=== PATIENT | female | born 2000 | race Caucasian/White ===

== ENCOUNTER 2023-04-18 15:56 | Outpatient (CLI) | payer OTHER ==
[~2023-04-18] VITALS: Ht 160 cm; Wt 96.8 kg
[2023-04-18 16:14] VITALS: BP 129/60
[2023-04-18] MEDS ORDERED: PRENTAB9 PO (16:18)
[2023-04-18 17:03] LABS: APPEARANCE, URINE HAZY (CLEAR); BACTERIA, URINE AUTO NEGATIVE (NEGATIVE); BILIRUBIN, URINE AUTO NEGATIVE (NEGATIVE); BLOOD, URINE BLOOD NEGATIVE (NEGATIVE); COLOR, URINE YELLOW (YELLOW); GLUCOSE, URINE (UA) AUTO NEGATIVE (NEGATIVE); KETONE, URINE AUTO NEGATIVE (NEGATIVE); LEUKOCYTE ESTERASE, URINE AUTO NEGATIVE (NEGATIVE); NITRITE, URINE AUTO NEGATIVE (NEGATIVE); PROTEIN, URINE AUTO NEGATIVE (NEGATIVE); RBC, URINE AUTO 1 /HPF (0-3); SPECIFIC GRAVITY URINE AUTO 1.009 (1.002-1.035); SQUAMOUS EPITHELIAL CELL UR AU 2 /HPF (0-6); UROBILINOGEN, URINE AUTO 0.2 mg/dL (0.0-2.0); WBC, URINE AUTO 3 /HPF (0-3)
== END 2023-04-18 17:08 | disposition home or self-care (01) ==
LOC: M LDO 15:56
PROVIDERS: ATTEND Obstetrics & Gynecology
DX: O36.8120 Decreased fetal movements, second trimester, not applicable or unspecified (principal); Z3A.26 26 weeks gestation of pregnancy; O26.892 Other specified pregnancy related conditions, second trimester; R25.2 Cramp and spasm; O99.212 Obesity complicating pregnancy, second trimester; E66.9 Obesity, unspecified
CPT/HCPCS: 59025; 76815; 81001; 87086; G0463

== ENCOUNTER 2023-05-07 11:12 | Outpatient (CLI) | payer OTHER ==
[~2023-05-07] VITALS: Ht 160 cm; Wt 97.4 kg
[~2023-05-07 11:12] MED LIST: PRENTAB9 PO
[2023-05-07 11:43] VITALS: BP 134/83
[2023-05-07] MEDS ORDERED: HOME MED LIST COMPLETE! XX SCH (11:45)
== END 2023-05-07 13:53 | disposition home or self-care (01) ==
LOC: M LDO 11:12
PROVIDERS: ATTEND Advanced Practice Midwife
DX: O36.8130 Decreased fetal movements, third trimester, not applicable or unspecified (principal); Z3A.28 28 weeks gestation of pregnancy
CPT/HCPCS: 59025; 76815; 76819; 76820; G0463

== ENCOUNTER 2023-07-21 15:27 | Inpatient (IN) | payer OTHER ==
[2023-07-21] VITALS (10 sets, daily range): BP systolic 121–144; BP diastolic 65–87
[~2023-07-21] VITALS: Ht 160 cm; Wt 100.0 kg
[2023-07-21] MEDS ORDERED: TRANEXAMIC ACID INJection 1,000 MG in NS 100 ML IV PRN (15:35)
[2023-07-21] MEDS ORDERED: OXYTOCIN DRIP 30 UNITS in IV 1 EA IV PRN ×6 (15:35)
[2023-07-21] MEDS ORDERED: LIDOCAINE 1% MDV 20ML VIAL INFIL PRN (15:35)
[2023-07-21] MEDS ORDERED: OXYTOCIN INJ 10UNITS/ML 1ML VIAL IM PRN (15:35)
[2023-07-21] MEDS ORDERED: CARBOPROST TROMETHAMINE 250 MCG/ML AMP IM PRN (15:35)
[2023-07-21] MEDS ORDERED: HOME MED LIST COMPLETE! XX SCH (16:00)
[2023-07-21 16:33] LABS: HEMATOCRIT 34.2 % (36.0-47.0); HEMOGLOBIN 11.3 g/dl (12.0-15.5); MEAN CORPUSCULAR HEMOGLOBIN 29.6 pg (27.0-33.0); MEAN CORPUSCULAR VOLUME 89.5 fl (80.0-96.0); PLATELET COUNT, AUTOMATED 247 10^3/uL (150-450); RED BLOOD COUNT 3.82 10^6/uL (4.00-5.40); WHITE BLOOD COUNT 10.6 10^3/uL (4.0-10.0)
[2023-07-21] MEDS ORDERED: miSOPROStol 50MCG 1/2 TABLET PO SCH (17:00)
[2023-07-21] MEDS ORDERED: NALBUPHINE HCL 10 MG/ML 1ML AMP IV PRN (21:40)
[2023-07-21] MEDS ORDERED: PROMETHAZINE 25MG/ML 1ML VIAL IV ONE (21:40)
[2023-07-22] VITALS (30 sets, daily range): BP systolic 105–145; BP diastolic 54–102; O2SAT 95
[2023-07-22] MEDS ORDERED: OXYTOCIN DRIP 30 UNITS in IV 1 EA IV SCH ×2 (00:10→22:00)
[2023-07-22] MEDS: LR 1,000 ML IV SCH ×4 (01:01→19:40)
[2023-07-22] MEDS ORDERED: ONDANSETRON 4MG 2ML VIAL IV PRN ×2 (06:30→22:00)
[2023-07-22] MEDS ORDERED: diphenhydrAMINE 50MG/ML VIAL IV PRN (06:30)
[2023-07-22] MEDS ORDERED: NALOXONE INJ 0.4MG/1ML VIAL IV PRN (06:30)
[2023-07-22] MEDS ORDERED: EPIDURAL/PCA KEYS XX PRN (06:30)
[2023-07-22] MEDS ORDERED: ePHEDrine SULFATE 25 MG/5 ML(5MG/ML) SYRINGE IVP PRN (06:30)
[2023-07-22] MEDS ORDERED: LR 500 ML IV PRN (06:30)
[2023-07-22] MEDS ORDERED: fentaNYL 100 MCG/2 ML INJECTION As Ordered ONE (06:38)
[2023-07-22] MEDS: FENTANYL/ROPIVACAINE/NACL BAG 100 ML EPIDURAL SCH ×2 (07:03→16:09)
[2023-07-22 21:38] LABS: CORD GAS ABE V -5.3; CORD GAS HCO3 A 19.8 MMOL/L; CORD GAS HCO3 V 20.6 MMOL/L; CORD GAS O2 SAT A 66.2 %; CORD GAS O2 SAT V 70.5 %; CORD GAS PCO2 A 48.7 mmHg; CORD GAS PCO2 V 41.1 mmHg; CORD GAS PH A 7.227 UNITS; CORD GAS PH V 7.317 UNITS; CORD GAS PO2 A 31.8 mmHg; CORD GAS PO2 V 31.3 mmHg; CORD GAS SBC A 17.4 MMOL/L; CORD GAS SBC V 19.5 MMOL/L; CORD GAS TCO2 A 21.3 MMOL/L; CORD GAS TCO2 V 21.8 MMOL/L
[2023-07-22] MEDS ORDERED: LR 1,000 ML IV SCH (22:00)
[2023-07-22] MEDS ORDERED: METHYLERGONOVINE MALEATE 0.2MG/ML 1ML VIAL IM PRN (22:00)
[2023-07-22] MEDS ORDERED: METOCLOPRAMIDE INJ 10MG/2ML VIAL IV PRN (22:00)
[2023-07-22] MEDS ORDERED: RHOGAM 300MCG (1500IU) INJ IM SCH (22:00)
[2023-07-22] MEDS ORDERED: DOCUSATE SODIUM 100MG CAPSULE PO PRN (22:00)
[2023-07-22] MEDS ORDERED: DIBUCAINE 1% OINTMENT 30GM TOP PRN (22:00)
[2023-07-22] MEDS: ACETAMINOPHEN 500 MG TAB PO SCH ×4 (22:19→23:29)
[2023-07-22] MEDS: IBUPROFEN 800 MG TAB PO SCH (22:20)
[2023-07-23 06:00] VITALS: BP 126/78; O2SAT 97
[2023-07-23] MEDS: ACETAMINOPHEN 500 MG TAB PO SCH ×3 (06:30→18:30)
[2023-07-23] MEDS: IBUPROFEN 800 MG TAB PO SCH ×3 (06:31→22:00)
[2023-07-23 06:34] LABS: MEAN CORPUSCULAR HEMOGLOBIN 30.5 pg (27.0-33.0); MEAN CORPUSCULAR HGB CONC 33.5 g/dl (32.0-36.5); MEAN CORPUSCULAR VOLUME 91.2 fl (80.0-96.0); PLATELET COUNT, AUTOMATED 171 10^3/uL (150-450); RED BLOOD COUNT 2.85 10^6/uL (4.00-5.40); WHITE BLOOD COUNT 18.2 10^3/uL (4.0-10.0)
[2023-07-23 06:56] LABS: HEMOGLOBIN 8.7 g/dl (12.0-15.5)
[2023-07-23] MEDS ORDERED: PRENATAL VITAMINS CHEWABLE TABLET PO SCH (09:00)
[2023-07-23] MEDS: PRENATAL VITAMINS CHEWABLE TABLET PO SCH (09:30)
[2023-07-23 10:37] VITALS: BP 108/60; O2SAT 97
[2023-07-23] MEDS: FERROUS SULFATE 325MG TAB PO SCH ×2 (14:33→21:00)
[2023-07-23 18:00] VITALS: BP 121/68; O2SAT 97
[2023-07-24] MEDS: ACETAMINOPHEN 500 MG TAB PO SCH ×2 (00:30→06:30)
[2023-07-24 06:00] VITALS: BP 129/74; O2SAT 98
[2023-07-24] MEDS: IBUPROFEN 800 MG TAB PO SCH ×2 (06:00→08:04)
[2023-07-24] MEDS: FERROUS SULFATE 325MG TAB PO SCH (08:02)
[2023-07-24] MEDS: PRENATAL VITAMINS CHEWABLE TABLET PO SCH (08:03)
[2023-07-24] MEDS ORDERED: MEASLES,MUMPS,RUBELLA VACCINE INJ (MMR-II) SC.IMMUN ONE (09:00)
== END 2023-07-24 10:10 | disposition home or self-care (01) | DRG 807 ==
LOC: M LDI 15:27 → M OBS 07-22 23:50
PROVIDERS: ADMIT Obstetrics & Gynecology; ATTEND Obstetrics & Gynecology
PROC: 3E033VJ Introduction of Other Hormone into Peripheral Vein, Percutaneous Approach (ICD-10-PCS; 2023-07-21)
PROC: 10E0XZZ Delivery of Products of Conception, External Approach (ICD-10-PCS; principal; 2023-07-22)
PROC: 0HQ9XZZ Repair Perineum Skin, External Approach (ICD-10-PCS; 2023-07-22)
DX: O13.4 Gestational [pregnancy-induced] hypertension without significant proteinuria, complicating childbirth (principal); Z37.0 Single live birth; Z3A.39 39 weeks gestation of pregnancy; O70.0 First degree perineal laceration during delivery; O99.02 Anemia complicating childbirth; D64.9 Anemia, unspecified

== ENCOUNTER → 2023-07-21 | Outpatient (CLI) | payer OTHER ==
[2023-07-21 10:09] LABS: HEMATOCRIT 34.6 % (36.0-47.0); HEMOGLOBIN 11.5 g/dl (12.0-15.5); MEAN CORPUSCULAR HEMOGLOBIN 29.8 pg (27.0-33.0); MEAN CORPUSCULAR HGB CONC 33.2 g/dl (32.0-36.5); MEAN CORPUSCULAR VOLUME 89.6 fl (80.0-96.0); PLATELET COUNT, AUTOMATED 221 10^3/uL (150-450); RED BLOOD COUNT 3.86 10^6/uL (4.00-5.40); WHITE BLOOD COUNT 12.1 10^3/uL (4.0-10.0)
[2023-07-21 10:14] LABS: APPEARANCE, URINE HAZY (CLEAR); BACTERIA, URINE AUTO NEGATIVE (NEGATIVE); BILIRUBIN, URINE AUTO NEGATIVE (NEGATIVE); BLOOD, URINE BLOOD NEGATIVE (NEGATIVE); COLOR, URINE AMBER (YELLOW); GLUCOSE, URINE (UA) AUTO NEGATIVE (NEGATIVE); KETONE, URINE AUTO NEGATIVE (NEGATIVE); LEUKOCYTE ESTERASE, URINE AUTO NEGATIVE (NEGATIVE); MUCUS, URINE SMALL (NEGATIVE); NITRITE, URINE AUTO NEGATIVE (NEGATIVE); PROTEIN, URINE AUTO 2+ mg/dL (NEGATIVE); RBC, URINE AUTO 4 /HPF (0-3); SPECIFIC GRAVITY URINE AUTO 1.019 (1.002-1.035); SQUAMOUS EPITHELIAL CELL UR AU 6 /HPF (0-6); WBC, URINE AUTO 4 /HPF (0-3)
[2023-07-21 10:36] LABS: TOTAL PROTEIN,RANDOM URINE 75.8 MG/DL (0.0-14.0)
[2023-07-21 10:41] LABS: CREATININE,RANDOM URINE 225.2 MG/DL
[2023-07-21 10:41] LABS: ALBUMIN 2.3 G/DL (3.2-5.2); ALKALINE PHOSPHATASE 250 U/L (46-116); ALT/SGPT 62 U/L (7.0-40); AST/SGOT 55 U/L (<34); BILIRUBIN,TOTAL 0.4 MG/DL (0.3-1.2); BLOOD UREA NITROGEN 12 MG/DL (9-23); CALCIUM LEVEL 9.4 MG/DL (8.5-10.1); CARBON DIOXIDE LEVEL 21 MMOL/L (20-31); CHLORIDE LEVEL 106 MMOL/L (98-107); CREATININE FOR GFR 0.69 MG/DL (0.55-1.30); GLOMERULAR FILTRATION RATE > 60.0 (>60); GLUCOSE, FASTING 117 MG/DL (60-100); SODIUM LEVEL 138 MMOL/L (136-145); TOTAL PROTEIN 6.1 G/DL (5.7-8.2)
== END ==
LOC: M LAB 09:34
PROVIDERS: ATTEND Obstetrics & Gynecology
DX: O13.3 Gestational [pregnancy-induced] hypertension without significant proteinuria, third trimester (principal)

== ENCOUNTER 2023-07-28 18:36 | Emergency (ER) | payer OTHER ==
[~2023-07-28] VITALS: Ht 160 cm; Wt 91.5 kg
[2023-07-28] MEDS ORDERED: ISOVUE-370 76% 100ML VIAL As Ordered ONE (18:47)
[2023-07-28 19:23] LABS: BASO # 0.1 10^3/uL (0.0-0.2); BASO % 0.4 % (0.0-1.0); EOS # 0.3 10^3/uL (0.0-0.5); EOS % 2.5 % (0.0-3.0); HEMATOCRIT 33.6 % (36.0-47.0); HEMOGLOBIN 10.9 g/dl (12.0-15.5); LYMPH # 2.6 10^3/uL (1.5-5.0); LYMPH % 23.2 % (24.0-44.0); MEAN CORPUSCULAR HEMOGLOBIN 29.6 pg (27.0-33.0); MEAN CORPUSCULAR HGB CONC 32.4 g/dl (32.0-36.5); MEAN CORPUSCULAR VOLUME 91.3 fl (80.0-96.0); MONO # 0.7 10^3/uL (0.0-0.8); MONO % 5.9 % (2.0-8.0); NEUTROPHILS # 7.6 10^3/uL (1.5-8.5); NEUTROPHILS % 67.2 % (36.0-66.0); PLATELET COUNT, AUTOMATED 480 10^3/uL (150-450); RED BLOOD COUNT 3.68 10^6/uL (4.00-5.40); WHITE BLOOD COUNT 11.3 10^3/uL (4.0-10.0)
[2023-07-28 19:32] LABS: CK-MB VALUE MASS < 1.0 NG/ML (<3.6)
[2023-07-28 19:38] LABS: BLOOD UREA NITROGEN 11 MG/DL (9-23); CARBON DIOXIDE LEVEL 23 MMOL/L (20-31); CHLORIDE LEVEL 107 MMOL/L (98-107); CREATININE FOR GFR 0.54 MG/DL (0.55-1.30); GLOMERULAR FILTRATION RATE > 60.0 (>60); GLUCOSE, FASTING 81 MG/DL (60-100); MAGNESIUM LEVEL 1.8 MG/DL (1.8-2.4); SODIUM LEVEL 140 MMOL/L (136-145)
[2023-07-28 19:39] LABS: CPK CREATINE PHOSPHOKINASE 70 U/L (34-145); MB/CK RELATIVE INDEX 1.42 (< OR =4)
[2023-07-28] MEDS ORDERED: TENECTEPLASE 50 MG KIT (TNKase) IVP ONE (19:55)
[2023-07-28 19:56] LABS: RSV AMPLIFICATION NEGATIVE (NEGATIVE)
[2023-07-28 20:19] LABS: INR 0.87; PROTHROMBIN TIME 11.5 SECONDS (12.5-14.5)
[2023-07-28 20:47] VITALS: BP 136/87; O2SAT 99
[2023-07-28] MEDS ORDERED: SODIUM CHLORIDE 0.9% INJ 10 ML SYR IV ONE ×2 (22:00)
[2023-07-28 22:05] VITALS: BP 148/90; TEMP 97.9; O2SAT 99
== END 2023-07-28 22:06 | disposition short-term general hospital (02) ==
LOC: M ED 18:36
DX: I67.9 Cerebrovascular disease, unspecified (principal)
CPT/HCPCS: 70450; 70496; 70498; 71045; 80047; 80048; 82550; 82553; 83735; 84484; 85025; 85610; 85730; 87631; 93005; 93041; 94760; 96374; 99285; J3101; Q9967

== ENCOUNTER 2023-08-04 19:34 | Inpatient (IN) | payer OTHER ==
[~2023-08-04] VITALS: Ht 160 cm; Wt 84.7 kg
[2023-08-05] MEDS ORDERED: ACETAMINOPHEN 500 MG TAB PO ONE (00:15)
[2023-08-05] MEDS ORDERED: BOOSTRIX VACCINE (TETANUS/DIPHTH/ACEL. PERTUSSIS) 0.5ML SYR IM ONE (00:15)
[2023-08-05] MEDS ORDERED: AMPICILLIN SOD/SULBACTAM SOD 3 GM in D5W MINI-BAG PLUS 100 ML IV ONE (00:15)
[2023-08-05] MEDS ORDERED: ACETAMINOPHEN TAB 650MG DOSE (2X325MG) PO PRN (00:50)
[2023-08-05] MEDS ORDERED: MORPHINE 2 MG/ML 1ML VIAL IV PRN (00:50)
[2023-08-05] MEDS ORDERED: HOME MED LIST COMPLETE! XX SCH (01:00)
[2023-08-05 01:21] LABS: BASO # 0.1 10^3/uL (0.0-0.2); BASO % 0.4 % (0.0-1.0); HEMATOCRIT 29.8 % (36.0-47.0); HEMOGLOBIN 9.7 g/dl (12.0-15.5); LYMPH # 1.1 10^3/uL (1.5-5.0); LYMPH % 5.1 % (24.0-44.0); MEAN CORPUSCULAR HEMOGLOBIN 29.4 pg (27.0-33.0); MEAN CORPUSCULAR HGB CONC 32.6 g/dl (32.0-36.5); MEAN CORPUSCULAR VOLUME 90.3 fl (80.0-96.0); MONO # 0.5 10^3/uL (0.0-0.8); MONO % 2.2 % (2.0-8.0); NEUTROPHILS # 20.4 10^3/uL (1.5-8.5); NEUTROPHILS % 91.6 % (36.0-66.0); PLATELET COUNT, AUTOMATED 654 10^3/uL (150-450); WHITE BLOOD COUNT 22.2 10^3/uL (4.0-10.0)
[2023-08-05] MEDS ORDERED: SLF 3 ML SYR IV PRN (02:20)
[2023-08-05 03:00] VITALS: BP 110/77; TEMP 98.3; O2SAT 97
[2023-08-05] MEDS ORDERED: SLF 3 ML SYR IV SCH (06:00)
[2023-08-05] MEDS: HEPARIN SOD (PORCINE) 5000UNITS/ML 1ML VIAL/SYRINGE SC SCH ×2 (06:00→13:17)
[2023-08-05] MEDS: AMPICILLIN SOD/SULBACTAM SOD 3 GM in D5W MINI-BAG PLUS 100 ML IV SCH ×2 (06:37→12:11)
[2023-08-05 07:45] VITALS: BP 109/67; TEMP 97.4; O2SAT 97
[2023-08-05 08:06] LABS: HEMATOCRIT 27.4 % (36.0-47.0); HEMOGLOBIN 8.7 g/dl (12.0-15.5); MEAN CORPUSCULAR HEMOGLOBIN 28.9 pg (27.0-33.0); MEAN CORPUSCULAR HGB CONC 31.8 g/dl (32.0-36.5); RED BLOOD COUNT 3.01 10^6/uL (4.00-5.40); WHITE BLOOD COUNT 14.5 10^3/uL (4.0-10.0)
[2023-08-05 08:11] LABS: PLATELET COUNT, AUTOMATED 551 10^3/uL (150-450)
[2023-08-05] MEDS ORDERED: NS 1,000 ML IV SCH (08:25)
[2023-08-05 08:33] LABS: BLOOD UREA NITROGEN 17 MG/DL (9-23); C REACTIVE PROTEIN QUANTITATIV 1.9 MG/DL (<1.0); CALCIUM LEVEL 9.1 MG/DL (8.5-10.1); CARBON DIOXIDE LEVEL 27 MMOL/L (20-31); CHLORIDE LEVEL 105 MMOL/L (98-107); CREATININE FOR GFR 0.66 MG/DL (0.55-1.30); GLOMERULAR FILTRATION RATE > 60.0 (>60); GLUCOSE, FASTING 93 MG/DL (60-100); POTASSIUM SERUM 4.2 MMOL/L (3.5-5.1); SODIUM LEVEL 141 MMOL/L (136-145)
[2023-08-05 13:21] VITALS: BP 117/60; TEMP 98.6; O2SAT 98
[2023-08-05] MEDS ORDERED: AMOX875T2 PO (14:32)
[2023-08-05] MEDS ORDERED: ACET1TAB55 PO (14:32)
== END 2023-08-05 15:33 | disposition home or self-care (01) | DRG 605 ==
LOC: M ED 19:34 → M ED INP 08-05 00:50 → M PED 08-05 02:45
PROVIDERS: ADMIT Family Medicine; ATTEND Student in an Organized Health Care Education/Training Program
PROC: 3E10X8Z Irrigation of Skin and Mucous Membranes using Irrigating Substance (ICD-10-PCS; principal; 2023-08-05)
DX: S51.851A Open bite of right forearm, initial encounter (principal); W54.0XXA Bitten by dog, initial encounter; Y93.89 Activity, other specified; Y99.8 Other external cause status; Y92.009 Unspecified place in unspecified non-institutional (private) residence as the place of occurrence of the external cause; D75.839 Thrombocytosis, unspecified